=== PATIENT | male | born 1990 | race African-American/Black ===

== ENCOUNTER 2019-08-21 22:30 | Inpatient (IN) | payer SELFPAY ==
[~2019-08-21] VITALS: Ht 182.9 cm; Wt 127.0 kg
[2019-08-21] MEDS ORDERED: ENOXAPARIN SODIUM INJ 100 MG/ML SYR SC STA (23:15)
[2019-08-21] MEDS ORDERED: ASPIRIN 81 MG CHEW TAB PO ONE (23:15)
[2019-08-21] MEDS ORDERED: NITROGLYCERIN 2% OINT 1 GM PKT TOP ONE (23:15)
[2019-08-21] MEDS ORDERED: ASPIRIN 325 MG TAB ONE (23:21)
--- NOTE | 2019-08-22 | Diagnostic Imaging Report ---
EXAMINATION: CXR 2 VIEW - HOPD INDICATION: Chest pain. COMPARISON: None FINDINGS: TUBES and LINES: None. LUNGS: Lungs are well inflated. There is no evidence of pneumonia or pulmonary edema. PLEURA: No pleural effusion or pneumothorax. HEART AND MEDIASTINUM: The cardiomediastinal silhouette is unremarkable. BONES AND SOFT TISSUES: No acute osseous lesion. Soft tissues are unremarkable. UPPER ABDOMEN: No free air under the diaphragm. IMPRESSION: No acute thoracic abnormality. Signed by: Dr. Manuel Castillo MD on 08/21/2019 11:57 PM
[2019-08-22] MEDS ORDERED: FAMOTIDINE 20 MG/2 ML VIAL IV SCH ×2 (00:15→09:00)
[2019-08-22] MEDS ORDERED: PROMETHAZINE HCL (IM) 25 MG/ML VIAL IV PRN (00:15)
[2019-08-22] MEDS ORDERED: MORPHINE SULFATE 2 MG/ML SYR 1ML IV PRN (00:15)
--- OUTSIDE RECORDS SUMMARY | 2019-08-22 00:37 | XMS REPORT ---
Author [facility] Organization [facility] Address Unknown Phone Unavailable Care Team Providers Care Grain Thresher Name Role Phone LIANNE STEVEN Unavailable Unavailable Problems This patient has no known problems. Allergies, Adverse Reactions, Alerts This patient has no known allergies or adverse reactions. Medications This patient has no known medications. Results Test Description Test Time Test Comments Text Results Atomic Results Result Comments CXR 2 VIEW - HOPD 2019-08-21 23:55:00 [facility] [address] [place] [address] Patient Name: GABBI DUKES MR #: [id number] : 1990 Age/Sex: 29/M Req #: [id number] Adm Physician: Ordered by: JEFFREY STEVEN Report #: [id number] Location: [facility] Room/Bed: Procedure: [id number] HOPD/CXR 2 VIEW - HOPD Exam Date: 08/21/19 Exam Time: 2340 REPORT STATUS: Signed EXAMINATION: CXR 2 VIEW - HOPD INDICATION: Chest pain. COMPARISON: None FINDINGS: TUBES and LINES: None. LUNGS: Lungs are well inflated. There is no evidence of pneumonia or pulmonary edema. PLEURA: No pleural effusion or pneumothorax. HEART AND MEDIASTINUM: The cardiomediastinal silhouette is unremarkable. BONES AND SOFT TISSUES: No acute osseous lesion. Soft tissues are unremarkable. UPPER ABDOMEN: No free air under the diaphragm. IMPRESSION: No acute thoracic abnormality. Signed by: Dr. Venkata Castillo MD on 08/21/2019 11:57 PM Dictated By: VENKATA CASTILLO MD [id number] Transcribed By: STEFAN on 08/21/192356 COPY TO: JEFFREY STEVEN
[2019-08-22] MEDS ORDERED: PROMETHAZINE 12.5MG/ NACL 0.9% 50 ML IV PRN (00:45)
[2019-08-22 01:37] VITALS: BP 157/78
--- NOTE | 2019-08-22 01:37 | NUR ---
RECEIVED PATIENT FROM [facility] VIA EMS AND STRETCHER. PATIENT AMBULATED TO BED, STEADY GAIT NOTED. A&OX4. NO PAIN REPORTED. NO CHEST PAIN REPORTED, PATIENT VERBALIZED HE WOULD INFORM STAFF IF HE DID DEVELOP CHEST PAIN AGAIN. LUNG SOUNDS CLEAR. BOWEL SOUNDS ACTIVE. LAST BM 08/20. PEDAL PULSES PALPABLE. NO EDEMA NOTED. SKIN INTACT. TELE MONITOR #13 APPLIED, RUNNING SR WITH INVERTED P WAVES AND A FIRST DEGREE AV BLOCK PER TOOL COORDINATOR. PATIENT ORIENTED TO ROOM AND CALL LIGHT SYSTEM. NO QUESTIONS AT THIS TIME. BED LOCKED IN LOWEST POSITION, SIDE RAILS UPX2, CALL LIGHT IN REACH.
[2019-08-22 02:32] VITALS: BP 157/78
[2019-08-22 05:00] VITALS: BP 136/63
[2019-08-22] MEDS ORDERED: NITROGLYCERIN 2% OINT 1 GM PKT TOP SCH (06:00)
--- NOTE | 2019-08-22 06:40 | NUR ---
Received bedside shift report from off going nurse. Patient is resting in bed, no s/s of distress noted. Call light within reach. Bed in the lowest position.
[2019-08-22 07:47] VITALS: BP 163/79
[2019-08-22 08:09] LABS: CREATINE KINASE MB 1.9 ng/mL (0-5.0)
[2019-08-22 09:05] VITALS: BP 163/79
[2019-08-22 10:21] LABS: CHOL/HDL RATIO 5.7 (3.9-4.7)
--- NOTE | 2019-08-22 10:41 | NUR ---
Per Patrick, SIDNEY patient passed stress test. If CT negative patient can be discharged.
--- NOTE | 2019-08-22 11:05 | EXERCISE STRESS TEST ---
DATE OF STUDY: 08/22/2019 09:29:00 Stress Test - Treadmill ONLY INDICATION FOR STUDY: Atypical chest pain. TECHNICAL DETAILS: After risks, benefits, pros and cons of today's exercise treadmill stress test explained to the patient, the patient agreed to proceed. The patient was brought to the stress lab where 12-lead EKG monitoring and blood pressure monitoring were obtained. He exercised on a Jean-Paul protocol going for a total duration of 12 minutes and 31 seconds terminating in stage 5 of the protocol. Baseline heart rate was 58 beats per minute and achieved a maximum peak exercise of 178 beats per minute which is above our target heart rate of 162 beats per minute. Blood pressure went from a baseline of 160/72 to 237/57, which is appropriate blood pressure response. Underlying EKG revealed normal sinus rhythm and nonspecific T-wave changes and at peak exercise, there was no ischemic EKG changes and no chest pain symptoms. Exercise was terminated due to achievement of target heart rate. Overall, the patient is noted to have excellent exercise tolerance, achieving very good workload. CONCLUSIONS: 1. Exercise treadmill stress test is negative for ischemic EKG changes or symptoms. 2. Overall findings of the stress test compatible with a low risk stress test. MD ANASTASIIA Amezcua/LARISA /[id number]
--- NOTE | 2019-08-22 11:47 | Diagnostic Imaging Report ---
EXAM: CT Chest WITHOUT intravenous contrast 08/22/2019 9:33 AM INDICATION: Chest pain COMPARISON: Chest radiograph of 08/21/2019 TECHNIQUE: Chest was scanned utilizing a multidetector helical scanner from the lung apex through the level of the adrenal glands without administration of IV contrast. Coronal and sagittal reformations were obtained. Routine protocol was performed. IV CONTRAST: None RADIATION DOSE: Total DLP: 549 mGy*cm. Dose modulation, iterative reconstruction, and/or weight based adjustment of the mA/kV was utilized to reduce the radiation dose to as low as reasonably achievable. COMPLICATIONS: None FINDINGS: LINES/ TUBES: None. LUNGS AND AIRWAYS: The central airways are patent. No focal consolidation. No pulmonary edema. No suspicious pulmonary nodule. PLEURA: The pleural spaces are clear. HEART AND MEDIASTINUM: The thyroid gland is normal. No mediastinal, hilar or axillary lymphadenopathy. The heart is normal in size.. There is no pericardial effusion. UPPER ABDOMEN: No acute findings. BONES: The visualized bony thorax is within normal limits. SOFT TISSUES: Unremarkable. IMPRESSION: No acute cardiopulmonary findings. Signed by: Melissa Glover MD on 08/22/2019 11:43 AM
[2019-08-22 11:56] VITALS: BP 147/83
--- NOTE | 2019-08-22 12:31 | Consultation ---
DATE OF CONSULTATION: 08/22/2019 Cardiology Consultation REASON FOR CONSULTATION: Atypical chest pain. HISTORY OF PRESENT ILLNESS: A 29-year-old male with no past medical history presents to this institution after having 2 days of left-sided chest pain. He reports a dull ache over his muscle pec region left-sided moderate intensity, lasting several hours with no known exacerbating or alleviating factors. He reports the pain was not positional and perhaps activity made it a little bit better. He came after this persistence of pain to a [facility]anding ER. There he was noted to have nonspecific EKG changes and has been brought here for rule out TX. His cardiac biomarkers troponin of 0.001 this morning. This is strongly negative like before. He denies any substernal chest pressure tightness. He denies any fevers or chills. He reports at baseline he is previously athletic and played football even last year. Denies any sick contacts. 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 He denies any leg pain or swelling. He has never had any cardiovascular history in the past. PAST MEDICAL HISTORY: None. PAST SURGICAL HISTORY: None. FAMILY HISTORY: Mother alive in her late 40s. Father alive in his 50s. No family history of coronary disease. SOCIAL HISTORY: He reports occasional tobacco use and occasional alcohol use. Denies any illicit drug use. ALLERGIES: IODINE IN THE FORM OF SHRIMP CAUSING SWELLING AND RASH. REVIEW OF SYSTEMS: GENERAL: Denies any fever, chills, or weight changes. HEENT: No headaches, visual complaints, sore throat, or stuffy nose. RESPIRATORY: Denies any pleuritic component of chest pain. CARDIOVASCULAR: As per HPI. Denies any subjective palpitations, syncope, or near syncope. GI: Denies any abdominal pain, bright red blood per rectum, melena, or hematemesis, nausea or vomiting. : Denies any dysuria, pyuria, or hematuria. MUSCULOSKELETAL: Denies any back pains or knee pain. PERIPHERAL: Denies any claudication or vein issues. ENDOCRINE: No heat or cold intolerance. NEUROLOGIC: Denies any focal weakness, numbness, tingling, seizures, headache, history of TIA or stroke. SKIN: No rashes. Remainder review of systems negative otherwise mentioned. PHYSICAL EXAMINATION: VITAL SIGNS: Height of 72 inches, weight of 280 pounds, BMI is 38, temperature of 96.0, pulse of 60, respiratory rate 17, blood pressure 136/63, 99% on room air, breathing 18 times a minute. GENERAL: This is a well-nourished, muscular, large built sharmaine, currently in no apparent distress. HEENT: Normocephalic and atraumatic. Pupils are equal, round, and reactive to light. Extraocular motors are intact. Oropharynx is clear. NECK: No elevation of jugular venous pulsation. No carotid bruits. CARDIOVASCULAR: Regular rate and rhythm. Normal S1, S2. No gallops, murmurs, or rubs. LUNGS: Clear to auscultation bilaterally. There is chest wall discomfort to palpation over his left lateral chest wall. ABDOMEN: Soft, nontender, nondistended. Normoactive bowel sounds. No hepatosplenomegaly. BACK: No costovertebral angle tenderness. EXTREMITIES: Warm with 2+ bilateral radial pulses, 2+ bilateral femoral pulses, and 2+ pedal pulses. NEUROLOGIC: Cranial nerves II through XII are intact. Strength 5/5. Grossly nonfocal. PSYCH: Normal fluent speech. Appropriate affect. No anxiety or delusions. LABORATORY DATA: [facility]. D-dimer is less than 100. Troponin is strongly negative with most recent set 0.001 spaced over several hours apart. EKG reveals sinus rhythm and nonspecific T-wave changes. Chest x-ray is negative. DIAGNOSES: 1. Chest pain very atypical for angina. 2. Nonspecific abnormal EKG. PLAN/RECOMMENDATIONS: 1. We will go ahead and proceed with TMT for ischemic risk stratification predominantly for evaluation of symptoms. 2. Aggressive risk factor modification medical therapy. 3. Depending on results of stress test will determine next course of action. 4. The patient had negative D-dimer, which has a high negative predictability of venous thromboembolism. MD ANASTASIIA Amezcua/LARISA /[id number]
--- NOTE | 2019-08-22 15:05 | NUR ---
Received discharge order from MD. Patient is in stable condition. IV line to left antecubital discontinued with tip intact, pressure applied to site, no bleeding noted. Discharge teaching provided to patient, he verbalized understanding. Discharge folder with paperwork and prescriptions on hand. Patient refused wheelchair, staff walked patient to private auto.
--- NOTE | 2019-08-22 15:06 | NUR ---
PT ADMITTED W CP TO INPATIENT. CALL TO DR. ARTEAGA TO REQUEST OBS STATUS.
--- NOTE | 2019-09-26 00:21 | Discharge Summary ---
CHIEF COMPLAINT: Left-sided chest discomfort. FINAL DIAGNOSIS: Atypical chest pain. DISPOSITION: Home. HOSPITAL COURSE: A 29-year-old male with no known past medical history, brought to the ER with 3-hour history of intermittent left chest discomfort associated with mild shortness of breath. No diaphoresis. No nausea. No significant exertional angina or dyspnea upon exertion. Underwent monitoring and evaluation in the emergency room. Admission was made for care regarding atypical chest pain, question of GERD, obesity. He will be admitted for 24-hour observation. We will be monitoring cardiac enzymes and requesting a Cardiology followup. With his admission regarding the left-sided chest pain, the patient was being seen by Cardiology, Dr. Durant and following his review of the patient, his findings were chest pain, very atypical for angina, nonspecific abnormal EKG. We will proceed with a treadmill test for ischemic risk stratification predominantly for evaluation of symptoms. Aggressive risk factor modification medical therapy. Stress test on the patient was conducted for evaluation of the atypical chest pain. Conclusion of the procedure reveals the study to be negative for ischemic EKG changes or symptoms. Overall findings of the stress test compatible with a low risk stress study. Imaging on the patient, chest x-ray reveals no acute thoracic abnormality. CT of the chest reveals no acute cardiopulmonary findings. Laboratory studies with chemistry panel that showed normal cardiac enzymes and lipid panel was revealing an elevated triglycerides of 240, cholesterol was normal. The patient was cleared for discharge. He was given the discharge instruction pamphlet. He was being referred to GI for evaluation of GERD. Pamphlets were also informative of chest wall pain. With discharge, the patient will continue on a regular diet. No equipments or supplies are necessary. No drains or [place] was needed. Activity level as directed by me as well as by Dr. Durant. It was noted on the demographic sheet that he has no documented PCP. The patient was given my card and told that he may follow up with me if he chooses in the next 2 to 3 weeks if needed or if he has recurrence of similar symptoms. Dictated by JILLIAN Christensen Darian Peacock MD CC/MODL /[id number]
== END 2019-08-22 15:05 | disposition home or self-care (01) | DRG 313 ==
LOC: FSED 22:30 → ERHOLD 08-22 00:23 → MED/SURG3 08-22 01:39
DX: R07.89 Other chest pain (principal); K21.9 Gastro-esophageal reflux disease without esophagitis; E66.9 Obesity, unspecified; Z68.38 Body mass index [BMI] 38.0-38.9, adult; Z91.013 Allergy to seafood
CPT/HCPCS: 36415; 71046; 71250; 80053; 80061; 82550; 82553; 84484; 85025; 93005; 93017; 99284; J1650

== ENCOUNTER 2019-08-27 02:03 | Emergency (ER) | payer SELFPAY ==
[~2019-08-27] VITALS: Ht 182.9 cm; Wt 127.0 kg
--- NOTE | 2019-08-27 02:40 | NUR ---
BLOOD DRAWN ON 1ST ATTEMPT WITH BUTTERFLY TO R-HAND. PT TOLERATED WELL
[2019-08-27 03:25] VITALS: BP 142/78
== END 2019-08-27 03:25 | disposition home or self-care (01) ==
LOC: FSED 02:03
DX: R07.89 Other chest pain (principal); K21.0 Gastro-esophageal reflux disease with esophagitis
CPT/HCPCS: 80053; 82553; 83880; 84484; 85025; 93005; 99283

== ENCOUNTER 2022-01-07 15:51 | Inpatient (IN) | payer SELFPAY ==
[~2022-01-07] VITALS: Ht 182.9 cm; Wt 129.3 kg
[2022-01-07] MEDS ORDERED: KETOROLAC TROMETHAMINE 30 MG/ML VIAL IV STA (16:58)
[2022-01-07] MEDS ORDERED: Vancomycin IV 1 GM in SODIUM CHLORIDE 0.9% 250ML 250 ML IV ONE (17:00)
[2022-01-07] MEDS ORDERED: CEFEPIME 2 GM in SODIUM CHLORIDE 0.9% 100 ML IV ONE (17:00)
[2022-01-07] MEDS ORDERED: SODIUM CHLORIDE 0.9% 100 ML ONE (17:20)
[2022-01-07] MEDS ORDERED: Vancomycin IV 1 GM VIAL ONE (17:20)
[2022-01-07] MEDS ORDERED: SODIUM CHLORIDE 0.9% 250ML 250 ML ONE ×2 (17:20→22:43)
[2022-01-07] MEDS ORDERED: KETOROLAC TROMETHAMINE 30 MG/ML VIAL ONE (17:20)
[2022-01-07] MEDS ORDERED: CEFEPIME HCL 1 GM VIAL ONE (17:21)
[2022-01-07] MEDS ORDERED: SODIUM CHLORIDE FLUSH 10 ML SYR INJ PRN (17:45)
[2022-01-07] MEDS ORDERED: ONDANSETRON HCL INJ 2MG/ML 2ML 2 MG/ML VIAL IV PRN (17:45)
[2022-01-07] MEDS ORDERED: KETOROLAC TROMETHAMINE 30 MG/ML VIAL IV PRN (18:00)
[2022-01-07 21:36] VITALS: BP 136/71
[2022-01-07] MEDS: CEFEPIME 2 GM in SODIUM CHLORIDE 0.9% 100 ML IV SCH (22:33)
[2022-01-07 23:09] VITALS: BP 136/71
[2022-01-07 23:50] VITALS: BP 136/71
[2022-01-08] VITALS (9 sets, daily range): BP systolic 114–157; BP diastolic 67–87
[2022-01-08] MEDS: CEFEPIME 2 GM in SODIUM CHLORIDE 0.9% 100 ML IV SCH ×3 (05:45→21:30)
[2022-01-08 06:13] LABS: BASOPHILS # (AUTO) 0.1 (0.0-0.1); BASOPHILS % 0.7 % (0.0-1.0); EOSINOPHILS # (AUTO) 0.3 (0.0-0.4); EOSINOPHILS % 2.7 % (0.0-6.0); HEMATOCRIT 38.1 % (38.2-49.6); HEMOGLOBIN 13.1 g/dL (14.0-18.0); LYMPHOCYTES # (AUTO) 2.8 (1.0-3.2); LYMPHOCYTES % 25.6 % (18.0-39.1); MEAN CORPUSCULAR HEMOGLOBIN 27.2 pg (28-32); MEAN CORPUSCULAR HGB CONC 34.4 g/dL (31-35); MEAN CORPUSCULAR VOLUME 79.2 fL (81-99); MONOCYTES # (AUTO) 1.5 (0.2-0.8); MONOCYTES % 13.8 % (4.4-11.3); NEUTROPHILS # (AUTO) 6.2 (2.1-6.9); NEUTROPHILS % 56.8 % (38.7-80.0); PLATELET COUNT 242 x10e3/uL (140-360); RED BLOOD COUNT 4.81 x10e6/uL (4.3-5.7); RED CELL DISTRIBUTION WIDTH 13.5 % (11.7-14.4)
[2022-01-08 06:35] LABS: ALBUMIN 3.1 g/dL (3.5-5.0); ALBUMIN/GLOBULIN RATIO 0.8 (0.8-2.0); CALCIUM 8.6 mg/dL (8.4-10.2); CREATININE, SERUM 0.88 mg/dL (0.72-1.25)
[2022-01-08 07:02] LABS: CHOL/HDL RATIO 5.3 (3.9-4.7)
[2022-01-08 07:07] LABS: PHOSPHORUS 3.5 MG/DL (2.3-4.7)
[2022-01-08] MEDS: Vancomycin IV 1 GM in SODIUM CHLORIDE 0.9% 250ML 250 ML IV SCH (09:45)
[2022-01-08] MEDS ORDERED: ENOXAPARIN SOD INJ 40 MG/0.4 ML SYR SC SCH (17:00)
[2022-01-09 01:32] VITALS: BP 139/59
[2022-01-09 05:03] VITALS: BP_SYST 114; BP_SYST 99; BP_DIAS 47; BP_DIAS 52
[2022-01-09] MEDS: CEFEPIME 2 GM in SODIUM CHLORIDE 0.9% 100 ML IV SCH (06:29)
[2022-01-09 08:46] VITALS: BP 148/80
[2022-01-09] MEDS: Vancomycin IV 1 GM in SODIUM CHLORIDE 0.9% 250ML 250 ML IV SCH (09:16)
[2022-01-09 09:47] LABS: ANION GAP 13.8 mmol/L (8-16); CALCIUM 8.5 mg/dL (8.4-10.2); CREATININE, SERUM 0.83 mg/dL (0.72-1.25); MAGNESIUM 1.9 MG/DL (1.3-2.1); PHOSPHORUS 3.6 MG/DL (2.3-4.7); POTASSIUM 3.8 mmol/L (3.5-5.1)
[2022-01-09] MEDS ORDERED: CLINDAMYCIN HC150 MG PO (10:07)
== END 2022-01-09 11:00 | disposition home or self-care (01) | DRG 603 ==
LOC: FSED 16:01 → ERHOLD 17:42 → MED/SURG3 20:38
PROVIDERS: ADMIT Internal Medicine; ATTEND Internal Medicine
DX: L03.116 Cellulitis of left lower limb (principal); B35.3 Tinea pedis; K21.9 Gastro-esophageal reflux disease without esophagitis; F41.9 Anxiety disorder, unspecified; Z91.041 Radiographic dye allergy status; E66.9 Obesity, unspecified; Z68.38 Body mass index [BMI] 38.0-38.9, adult; Z20.822 Contact with and (suspected) exposure to COVID-19
CPT/HCPCS: 36415; 80048; 80053; 80061; 83036; 83735; 84100; 85025; 87040; 99284; J0692; J1650; J1885; J3370; J7050

== ENCOUNTER 2024-06-15 18:04 | Emergency (ER) | payer SELFPAY ==
[~2024-06-15] VITALS: Ht 185.4 cm; Wt 130.3 kg
[~2024-06-15 18:04] MED LIST: CLINDAMYCIN HC150 MG PO
[2024-06-15] MEDS: IBUPROFEN 600 MG TAB PO STA (18:34)
[2024-06-15] MEDS ORDERED: AMOXICILLIN500 MG PO (18:37)
[2024-06-15] MEDS ORDERED: IBUPROFEN800 MG PO (18:38)
[2024-06-15] MEDS: AMOXICILLIN/CLAVULANATE K 875 MG TAB PO STA (18:55)
[2024-06-15 19:00] VITALS: PULSE 88; RESP 20; TEMP 100.5; O2SAT 100
== END 2024-06-15 19:00 | disposition home or self-care (01) ==
LOC: FSED 18:08
DX: R50.9 Fever, unspecified (principal); J02.0 Streptococcal pharyngitis; J45.909 Unspecified asthma, uncomplicated; K21.9 Gastro-esophageal reflux disease without esophagitis; F41.9 Anxiety disorder, unspecified; Z11.52 Encounter for screening for COVID-19
CPT/HCPCS: 0223U; 83518; 87400; 99283

== ENCOUNTER 2024-12-30 11:36 | Emergency (ER) | payer OTHER ==
[~2024-12-30] VITALS: Ht 185.4 cm; Wt 136.1 kg
[~2024-12-30 11:36] MED LIST changes: +AMOXICILLIN500 MG PO; +IBUPROFEN800 MG PO
[2024-12-30] MEDS ORDERED: KETOROLAC TROMETHAMINE 30 MG/ML VIAL ONE (12:05)
[2024-12-30] MEDS: ACETAMINOPHEN 325 MG TAB PO ONE (12:13)
[2024-12-30] MEDS: LACTATED RINGER'S 1,000 ML INJ ONE (12:14)
[2024-12-30] MEDS: KETOROLAC TROMETHAMINE 30 MG/ML VIAL IV STA (12:14)
[2024-12-30] MEDS ORDERED: IBUPROFEN800 MG PO (12:36)
[2024-12-30] MEDS ORDERED: TYLENOL325 MG PO (12:36)
[2024-12-30 12:53] VITALS: PULSE 78; RESP 20; TEMP 98.9; O2SAT 98
== END 2024-12-30 12:53 | disposition home or self-care (01) ==
LOC: FSED 11:44
DX: R53.81 Other malaise (principal); B34.9 Viral infection, unspecified; R53.83 Other fatigue; M79.18 Myalgia, other site; K21.9 Gastro-esophageal reflux disease without esophagitis; F41.9 Anxiety disorder, unspecified
CPT/HCPCS: 80048; 80076; 81003; 85025; 96374; 99284; J1885